=== PATIENT | female | born 1965 | race Two or more races ===

== ENCOUNTER 2023-02-19 19:22 | Emergency (ER) | payer MEDICAID, SELFPAY ==
[2023-02-19] VITALS (15 sets, daily range): BP systolic 136–159; BP diastolic 70–76; PULSE 85–97; RESP 17; TEMP 36.3; O2SAT 94–97; BMI 31.9
--- NOTE | 2023-02-19 20:07 | CRLHL7_ITS ---
For Patients: As a result of the Century Cures Act, medical imaging exams and procedure reports are released immediately into your electronic medical record. You may view this report before your referring provider. If you have questions, please contact your health care provider. INDICATION: Weakness. TECHNIQUE: Chest 1 view(s) COMPARISON: None. FINDINGS: Cardiomediastinal silhouette and pulmonary vasculature are normal. No focal consolidation. Probable punctate calcified granuloma projecting over the left midlung. No layering pleural effusion. No pneumothorax. No acute chest wall abnormality. IMPRESSION: No focal consolidation. Dictated by Dariusz Rosales MD @ 02/19/2023 8:29:43 PM (Electronically Signed)
--- NOTE | 2023-02-19 20:17 | ED_ITS ---
HPI - General Adult General Chief complaint: Weakness Stated complaint: Weak, faint, L arm numb and L leg numb Time Seen by Provider: 02/19/23 20:01 History of Present Illness HPI narrative: Patient is a 57-year-old woman who is noncompliant with her antihypertensive regiment. She was at her mother's wake tonight when she felt extremely anxious and had a difficult time with shortness of breath and some clumsiness of the left arm opening her water. Patient felt like she was going to pass out. She really had no focal neurologic symptoms no seizure activity no headaches no change of vision no chest pain no shortness of breath. She had complete resolution of her symptoms within several minutes but is still quite anxious. She has had no similar symptoms previously and has been in her usual good state of health. She states she has not been taking her medications and she is be tween jobs. Related Data Home Medications Medication Instructions Recorded Confirmed No Known Home Medications 02/19/23 02/19/23 Allergies Allergy/AdvReac Type Severity Reaction Status Date / Time No Known Drug Allergies Allergy Verified 02/19/23 19:37 Review of Systems Status of ROS: Reports: 10 or more systems reviewed and unremarkable except as noted in History and below [facility] Medical History Hypertension ?I10 - Essential (primary) hypertension (ICD-10) Social History Smoking Status: Current every day smoker What tobacco products do you use: cigarettes Smoking packs per day: 1 Smoking cigarettes per day: 20.0 How often do you have a drink containing alcohol: never AUDIT-C Alcohol total score: 0 Non-prescribed substance use: denies use Exam Narrative: Exam Narrative: EXAM GENERAL: Patient appears comfortable and well. EYES: No scleral icterus. LYMPH: No supraclavicular or cervical lymphadenopathy. SKIN: Visible skin seen during exam normal or with benign process only. EXT: No dependent lower extremity pedal edema. HEART: Regular rate and rhythm with no murmurs, rubs, or gallops. LUNGS: Clear to auscultation bilaterally with no crackles or wheezes. ABD: Soft, non tender, non distended. PSYCH: Good eye contact, speech is not pressured. Neurologic cranial nerves 2-12 grossly intact no focal defects. Const: Vital Signs, click to edit/add: Vital Signs - 24 hr 02/19/23 19:29 02/19/23 19:58 02/19/23 19:59 Temperature 97.4 F L Pulse Rate 88 85 Pulse Rate [Pulse Oximeter] 97 Respiratory Rate 17 Blood Pressure 153/75 H Blood Pressure [Ri ght Upper Arm] 159/76 H Pulse Oximetry 96 97 96 02/19/23 20:00 02/19/23 20:02 02/19/23 20:15 Temperature Pulse Rate 86 89 85 Pulse Rate [Pulse Oximeter] Respiratory Rate Blood Pressure 153/75 H Blood Pressure [Ri ght Upper Arm] Pulse Oximetry 96 97 97 02/19/23 20:17 02/19/23 20:30 02/19/23 20:31 Temperature Pulse Rate 89 90 90 Pulse Rate [Pulse Oximeter] Respiratory Rate Blood Pressure 136/70 148/75 H Blood Pressure [Ri ght Upper Arm] Pulse Oximetry 97 95 94 02/19/23 20:32 02/19/23 20:45 02/19/23 21:00 Temperature Pulse Rate 91 85 86 Pulse Rate [Pulse Oximeter] Respiratory Rate Blood Pressure Blood Pressure [Ri ght Upper Arm] Pulse Oximetry 95 94 95 02/19/23 21:01 Temperature Pulse Rate 89 Pulse Rate [Pulse Oximeter] Respiratory Rate Blood Pressure 150/72 H Blood Pressure [Ri ght Upper Arm] Pulse Oximetry 94 Course Course ED Course: Patient is neurologically stable. CT of the head has been ordered already I did follow with chest x-ray CBC basic metabolic panel troponin EKG. Vital Signs Vital signs: Initial Vital Signs Temperature 97.4 F L 02/19/23 19:29 Temperature Source Temporal Artery Scan 02/19/23 19:29 Pulse Rate 97 02/19/23 19:29 Respiratory Rate 17 02/19/23 19:29 Blood Pressure 159/76 H 02/19/23 19:29 Blood Pressure Mean 103 02/19/23 19:29 Blood Pressure Position Sitting 02/19/23 19:29 Pulse Oximetry 96 02/19/23 19:29 Vital Signs Temperature 97.4 F L 02/19/23 19:29 Pulse Rate 97 02/19/23 19:29 Respiratory Rate 17 02/19/23 19:29 Blood Pressure 159/76 H 02/19/23 19:29 Pulse Oximetry 96 02/19/23 19:29 Temperature 97.4 F L 02/19/23 19:29 Pulse Rate 89 02/19/23 21:01 Respiratory Rate 17 02/19/23 19:29 Blood Pressure 150/72 H 02/19/23 21:01 Pulse Oximetry 94 02/19/23 21:01 Medical Decision Making MDM Narrative Medical decision making narrative: Patient is a 57-year-old woman who had healing and weakness as well as generalized anxiety at her mom's wake tonight. She came in and CT of the head was unremarkable. She has normal vital signs and a normal neurologic exam. Troponin EKG chest x-ray electrolytes CBC all normal. Patient feels well like to go home. Do not feel like further evaluation is indicated. She will follow- up with her primary physician will consider restarting her medications. Differential Diagnosis Differential Diagnosis: CVA seizure TIA anxiety panic attack Lab Data Labs: Lab Results 02/19/23 Range/Units 19:53 WBC 10.68 (4.50-11.00) K/uL RBC 4.93 (4.00-5.20) m/uL Hgb 13.5 (12.0-16.0) gm/dL Hct 43.3 (33.0-51.0) % MCV 88 (80-100) fL MCH 27 (26-34) pg MCHC 31 L (32-36) gm/dL RDW Coeff of Tung 14.6 (11.5-15.5) % Plt Count 251 (140-440) K/uL Neut % (Auto) 74.0 H (42.0-72.0) % Lymph % (Auto) 18.1 L (20-44) % [place] % (Auto) 6.5 (0.0-11.0) % Eos % (Auto) 0.7 (0.0-7.0) % Baso % (Auto) 0.6 (0.0-3.0) % Neut # (Auto) 7.90 H (1.7-7.0) K/uL Lymph # (Auto) 1.90 (0.90-2.90) K/uL [place] # (Auto) 0.70 (0.00-0.90) K/UL Eos # (Auto) 0.08 (0.00-0.50) K/uL Baso # (Auto) 0.06 (0.00-0.30) K/uL Abs Immat Gran (auto) 0.01 (0.00-0.30) K/uL Imm/Tot Granulo (auto) 0.1 % Sodium 139 (135-149) mmol/L Potassium 3.6 (3.6-5.1) mmol/L Chloride 102 (96-114) mmol/L Carbon Dioxide 25 (20-32) mmol/L Anion Gap 12 (7-15) mEq/L BUN 12 (7-30) mg/dL Creatinine 0.6 (0.5-1.5) mg/dL Estimated Creat Clear 83.51 Estimated GFR 103 ml/min Glucose 102 (60-115) mg/dL Calcium 9.3 (8.4-10.6) mg/dL Troponin I < 0.01 L (0.01-0.04) ng/mL Discharge Plan Discharge Clinical Impression: Weakness Patient Disposition: Home, Self-Care Condition: Stable Instructions: Weakness (ED) Activity Level: No Restrictions Discharge Diet: Regular Prescriptions: No Action No Known Home Medications Follow Up/Referrals: Provider,Not a Local [Primary Care Provider] - Stand Alone Forms: [facility] Info Instructions
[2023-02-19 20:26] LABS: Basophils Absolute Auto 0.06 K/uL (0.00-0.30); Basophils Percent Auto 0.6 % (0.0-3.0); Eosinophils Absolute Auto 0.08 K/uL (0.00-0.50); Eosinophils Percent Auto 0.7 % (0.0-7.0); Hematocrit 43.3 % (33.0-51.0); Hemoglobin* 13.5 gm/dL (12.0-16.0); Immature Granulocytes Abs Auto 0.01 K/uL (0.00-0.30); Immature Granulocytes Pct Auto 0.1 %; Lymphocytes Percent Auto 18.1 % (20-44); Mean Corpuscular HGB Conc 31 gm/dL (32-36); Mean Corpuscular Hemoglobin 27 pg (26-34); Mean Corpuscular Volume 88 fL (80-100); Monocytes Percent Auto 6.5 % (0.0-11.0); Platelet Count* 251 K/uL (140-440); RDW Coefficient of Variation % 14.6 % (11.5-15.5); Red Blood Count 4.93 m/uL (4.00-5.20); White Blood Count* 10.68 K/uL (4.50-11.00)
[2023-02-19 20:28] LABS: Slide Review Reflex No
[2023-02-19 20:38] LABS: Chloride* 102 mmol/L (96-114)
[2023-02-19 20:39] LABS: Potassium* 3.6 mmol/L (3.6-5.1); Sodium* 139 mmol/L (135-149)
[2023-02-19 20:41] LABS: Creatinine* 0.6 mg/dL (0.5-1.5); Est. Creatinine Clearance* 83.51; Estimated Glomerular Filt Rate 103 ml/min
[2023-02-19 20:42] LABS: Anion Gap 12 mEq/L (7-15); Blood Urea Nitrogen* 12 mg/dL (7-30); Calcium* 9.3 mg/dL (8.4-10.6); Carbon Dioxide* 25 mmol/L (20-32); Glucose* 102 mg/dL (60-115)
[2023-02-19 21:13] LABS: Troponin I* < 0.01 ng/mL (0.01-0.04)
== END 2023-02-19 21:35 | disposition home or self-care (01) ==
PROVIDERS: Emergency Provider Internal Medicine
DX: R53.1 Weakness (principal)
CPT/HCPCS: 36415; 71045; 80048; 84484; 85025; 93005; 95992; 99283; 99284